=== PATIENT | female | born 1950 | race Hispanic/Latino ===

== ENCOUNTER → 2019-05-06 | Day surgery (SDC) | payer MEDICARE ==
[2019-04-30 13:04] LABS: BASOPHILS % 0.2 % (0.0-1.0); EOSINOPHILS # (AUTO) 0.2 (0.0-0.4); EOSINOPHILS % 1.5 % (0.0-6.0); HEMATOCRIT 43.6 % (34.2-44.1); HEMOGLOBIN 14.3 g/dL (12.0-16.0); LYMPHOCYTES # (AUTO) 2.4 (1.0-3.2); LYMPHOCYTES % 16.8 % (18.0-39.1); MEAN CORPUSCULAR HEMOGLOBIN 29.7 pg (28-32); MEAN CORPUSCULAR HGB CONC 32.8 g/dL (31-35); MEAN CORPUSCULAR VOLUME 90.5 fL (81-99); MONOCYTES # (AUTO) 0.9 (0.2-0.8); MONOCYTES % 6.6 % (4.4-11.3); NEUTROPHILS # (AUTO) 10.5 (2.1-6.9); NEUTROPHILS % 74.2 % (38.7-80.0); PLATELET COUNT 276 x10e3/uL (140-360); RED BLOOD COUNT 4.82 x10e6/uL (3.6-5.1); RED CELL DISTRIBUTION WIDTH 12.6 % (11.7-14.4)
[~2019-05-06] MED LIST: CRESTOR10 MG PO; FENTANYL CITRATE/PF 100MCG/2 ML INJ ONE; METFORMIN HCL500 MG PO; NAPROXEN250 MG PO; NEXIUM20 MG PO; PROPOFOL IV EMULSION 10 MG/ML 50 ML VIAL ONE
--- OUTSIDE RECORDS SUMMARY | 2019-05-06 10:01 | XMS REPORT ---
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 Allergies, Adverse Reactions, Alerts Allergy Name Allergy Type Status Severity Reaction(s) Onset Date Inactive Date Treating Clinician Comments No Known Allergies DA Active U 2018-11-02 00:00:00 No Known Contrast Allergies DA Active U 2006-11-04 00:00:00 No Known Drug Allergies DA Active U 2006-11-04 00:00:00 No Known Food Allergies DA Active U 2006-11-04 00:00:00 No Known Other Allergies DA Active U 2006-11-04 00:00:00 Medications This patient has no known medications. Encounters Start Date/Time End Date/Time Encounter Type Admission Type Attending [facility] Facility Care Department Encounter ID 2017-03-08 11:19:00 2017-03-08 23:59:00 Outpatient DAVID LUCIO [facility] [id number] Results Test Description Test Time Test Comments Text Results Atomic Results Result Comments - XR TIBIA/FIBULA 2 V RT 2019-01-05 00:14:00 FAX: Idris Worthington MD [phone] [place]: [place] St: [facility] FAX: Camila Snyder MD [phone] [facility] 1950 [facility] 68[facility]F [address] [facility] [address] Unit #: [id number] Loc: [facility] [address] Phys: Idris Regalado MD [place], [place] [address] Acct: [id number] Dis Date: Status: REG ER PHONE #: Exam Date: 01/04/2019 3683 FAX #: Reason: fall EXAMS: CPT CODE: [id number] XR TIBIA/FIBULA 2 [place] RT [id number] AFTER HOURS SERVICE ON: 01/05/2019 12:09 AM Right Ankle, 3 Views Location Code M12 History: fall Findings: There is a nondisplaced spiral fracture of the lateral malleolus. Overlying soft tissue swelling is noted. Ankle mortise, tibial plafond and talar dome are intact. Impression: Nondisplaced spiral fracture of the lateral malleolus. AFTER HOURS SERVICE ON: 01/05/2019 12:09 AM Right Tibia and Fibula, 4 Views Location Code M12 History: fall Findings: There is a spiral fracture of the lateral malleolus. No other fractures are seen in the proximal tibia and fibula. Impression: Nondisplaced spiral fracture of the lateral malleolus. PAGE 1 Signed Report (CONTINUED) FAX: Idris Worthington MD [phone] [place]: [place] St: REG FAX: Camila Snyder MD [phone] [facility] 1950 [facility]S: 68[facility]F [address] [facility] [address] Unit #: [id number] Loc: [facility] [address] Phys: Idris Regalado MD [place], [place] [address] Acct: [id number] Dis Date: Status: REG ER PHONE #: Exam Date: 01/04/2019 2351 FAX #: Reason: fall EXAMS: CPT CODE: [id number] XR TIBIA/FIBULA 2 V RT [id number] <Continued> at 0014 Reported and signed by: Gabriella Soto M.D. CC: Idris Regalado MD; Camila Valentino MD Technologist: Balaji Galvez [facility] Date/Time/By: 01/05/2019 (0014) : By: [email or web address] Orig Print D/T: S: 01/05/2019 (0017) PAGE 2 Signed Report - XR ANKLE 3 + V RT 2019-01-05 00:14:00 FAX: Idris Worthington MD [phone] [place]: [place] St: REG FAX: Camila Snyder MD [phone] Name: JORDAN WHALEN [facility]ED : 1950 Age/S: 68/F [address] [facility] [address] Unit #: [id number] Loc: [facility] [address] Phys: Idris Regalado MD [place], [place] [address] Acct: [id number] Dis Date: Status: REG ER PHONE #: Exam Date: 01/04/2019 2359 FAX #: Reason: fall EXAMS: CPT CODE: [id number] XR ANKLE 3 + V RT [id number] AFTER HOURS SERVICE ON: 01/05/2019 12:09 AM Right Ankle, 3 Views Location Code M12 History: fall Findings: There is a nondisplaced spiral fracture of the lateral malleolus. Overlying soft tissue swelling is noted. Ankle mortise, tibial plafond and talar dome are intact. Impression: Nondisplaced spiral fracture of the lateral malleolus. AFTER HOURS SERVICE ON: 01/05/2019 12:09 AM Right Tibia and Fibula, 4 Views Location Code M12 History: fall Findings: There is a spiral fracture of the lateral malleolus. No other fractures are seen in the proximal tibia and fibula. Impression: Nondisplaced spiral fracture of the lateral malleolus. PAGE 1 Signed Report (CONTINUED) FAX: Idris Worthington MD [phone] [place]: [place] St: REG FAX: Camila Snyder MD [phone] Name: JORDAN WHALEN [facility] FSED : 1950 Age/S: 68/F [address] [facility] [facility] [address] Unit #: [id number] Loc: [facility] [address] Phys: Idris Regalado MD [place], [place] [address] Acct: [id number] Dis Date: Status: REG ER PHONE #: Exam Date: 01/04/2019 2354 FAX #: Reason: fall EXAMS: CPT CODE: [id number] XR ANKLE 3 + V RT [id number] <Continued> at 0014 Reported and signed by: Gabriella Soto M.D. CC: Idris Regalado MD; Camila Valentino MD Technologist: Balaji Galvez [facility] Date/Time/By: 01/05/2019 (0014) : By: [email or web address] Orig Print D/T: S: 01/05/2019 (0017) PAGE 2 Signed Report - XR HIP W/PEL UNI 2+V RT 2018-11-02 18:17:00 FAX: Camila Snyder MD [phone] [place]: St: REG FAX: Lupillo Hutchison MD [phone] Name: JORDAN WHALEN [facility] : 1950 Age/S: 68/F [address] [facility] Unit #: [id number] Loc: [place] [address] Phys: Lupillo Hutchison MD Acct: [id number] Dis Date: Status: REG ER PHONE #: [phone] Exam Date: 11/02/2018 1815 FAX #: [phone] Reason: RLE pain EXAMS: CPT CODE: [id number] XR HIP W/PEL UNI 2+V [place] [id number] REASON FOR EXAM: RLE pain EXAM ORDER DATE: 11/02/2018 4:50 PM Ordering Leonila: Lupillo Hutchison MD PROCEDURE: - XR HIP W/PEL UNI 2+V RT FINDINGS: 3 views of the right hip with frontal view of the pelvis were obtained. The osseous structures are unremarkable in size and shape. The joint spaces are maintained. No evidence of fracture. There is normal alignment of the right hip joint IMPRESSION: Unremarkable right hip at 1817 Reported and signed by: Eulalio Hopkins M.D. CC: Camila Valentino MD; Lupillo Hutchison MD Technologist: MARIANELA HinkleR Trn[facility] Date/Time/By: 11/02/2018 (1816) : By: [email or web address] Orig Print D/T: S: 11/02/2018 (5749) PAGE 1 Signed Report BASIC METABOLIC PANEL 2018-11-02 17:37:00 SODIUM (test code=NA) 143 mmol/L 136-145 POTASSIUM (test code=K) 3.5 mmol/L 3.5-5.1 CHLORIDE (test code=CL) 110.0 mmol/L 98-107 CARBON DIOXIDE (test code=CO2) 27.0 mmol/L 21-32 ANION GAP (test code=GAP) 9.5 10-20 GLUCOSE (test code=GLU) 99 mg/dL 74-106 BLOOD UREA NITROGEN (test code=BUN) 19 mg/dL 7-18 GLOMERULAR FILTRATION RATE (test code=GFR) > 60 mL/min >=60 Estimated GFR by using Modified MDRD formula.Chronic kidney disease is defined as either kidney damageor GFR <60 mL/min/1.73 m2 for >3 months. CREATININE (test code=CREAT) 0.50 mg/dL 0.55-1.02 Note change in reference range due to change in reagent. BUN/CREATININE RATIO (test code=BUN/CREA) 38.0 10-20 CALCIUM (test code=CA) 8.0 mg/dL 8.5-10.1 PROTHROMBIN [id number] 17:20:00* Test Item Value Reference Range Comments PROTHROMBIN TIME PATIENT (test code=PTP) 11.4 seconds 9.0-14.0 INTERNATIONAL NORMAL RATIO (test code=INR) 1.0 0.8-1.2 The therapeutic range for oral anticoagulant therapy formost indications is an international normalized ratio (INR)of between 2.0 and 3.0. The recommended therapeutic INRrange for various clinical situations is listed below: Clinical Situation INR range Pulmonary e mbolism treatment (2.0-3.0)Venous thrombosis treatmentVenous thrombosis prophylaxis (high risk surgery)Prevention of systemic embolism from: Acute myocardial infarction Valvular heart disease Atrial fibrillation Mechanical prosthetic heart valves (2.5-3.5) IS PATIENT ON ANTICOAGULANTS? NTHROMBOPLASTIN TIME [id number] 17:20:00* Test Item Value Reference Range Comments THROMBOPLASTIN TIME PARTIAL (test code=PTT) 30.7 seconds 25.0-36.5 IS PATIENT ON ANTICOAGULANTS? NCBC W/AUTO [id number] 17:10:00* Test Item Value Reference Range Comments WHITE BLOOD CELL (test code=WBC) 6.8 K/mm3 4.5-12.5 RED BLOOD CELL (test code=RBC) 4.25 mill/mm3 3.7-5.2 HEMOGLOBIN (test code=HGB) 12.7 gram/dL 11.5-15.5 HEMATOCRIT (test code=HCT) 38.8 % 36.0-46.0 MEAN CELL VOLUME (test code=MCV) 91.3 fL 80-98 MEAN CELL HGB (test code=MCH) 29.9 picogram 27.0-33.0 MEAN CELL HGB CONCETRATION (test code=MCHC) 32.7 gram/dL 33.0-36.0 RED CELL DISTRIBUTION WIDTH (test code=RDW) 12.9 % 11.6-16.2 RED CELL DISTRIBUTION WIDTH SD (test code=RDW-SD) 42.5 fL 37.0-51.0 PLATELET COUNT (test code=PLT) 228 K/mm3 150-450 MEAN PLATELET VOLUME (test code=MPV) 10.0 fL 6.7-11.0 NEUTROPHIL % (test code=NT%) 55.3 % 39.0-69.0 IMMATURE GRANULOCYTE % (test code=IG%) 0.3 % 0.0-5.0 LYMPHOCYTE % (test code=LY%) 34.5 % 25.0-55.0 MONOCYTE % (test code=MO%) 6.1 % 0.0-10.0 EOSINOPHIL % (test code=EO%) 3.4 % 0.0-5.0 BASOPHIL % (test code=BA%) 0.4 % 0.0-1.0 NUCLEATED RBC % (test code=NRBC%) 0.0 % 0-0 NEUTROPHIL # (test code=NT#) 3.78 K/mm3 1.8-7.7 IMMATURE GRANULOCYTE # (test code=IG#) 0.02 x10 3/uL 0-0.03 LYMPHOCYTE # (test code=LY#) 2.36 K/mm3 1.0-5.0 MONOCYTE # (test code=MO#) 0.42 K/mm3 0-0.8 EOSINOPHIL # (test code=EO#) 0.23 K/mm3 0.0-0.5 BASOPHIL # (test code=BA#) 0.03 K/mm3 0.0-0.2 NUCLEATED RBC # (test code=NRBC#) 0.00 K/mm3 0.0-0.1 CBC W/AUTO [id number] 17:07:00* Test Item Value Reference Range Comments WHITE BLOOD CELL (test code=WBC) K/mm3 4.5-12.5 RED BLOOD CELL (test code=RBC) mill/mm3 3.7-5.2 HEMOGLOBIN (test code=HGB) 12.7 gram/dL 11.5-15.5 HEMATOCRIT (test code=HCT) 38.8 % 36.0-46.0 MEAN CELL VOLUME (test code=MCV) fL 80-98 MEAN CELL HGB (test code=MCH) picogram 27.0-33.0 MEAN CELL HGB CONCETRATION (test code=MCHC) gram/dL 33.0-36.0 RED CELL DISTRIBUTION WIDTH (test code=RDW) % 11.6-16.2 RED CELL DISTRIBUTION WIDTH SD (test code=RDW-SD) fL 37.0-51.0 PLATELET COUNT (test code=PLT) K/mm3 150-450 MEAN PLATELET VOLUME (test code=MPV) fL 6.7-11.0 NEUTROPHIL % (test code=NT%) % 39.0-69.0 IMMATURE GRANULOCYTE % (test code=IG%) % 0.0-5.0 LYMPHOCYTE % (test code=LY%) % 25.0-55.0 MONOCYTE % (test code=MO%) % 0.0-10.0 EOSINOPHIL % (test code=EO%) % 0.0-5.0 BASOPHIL % (test code=BA%) % 0.0-1.0 NEUTROPHIL # (test code=NT#) K/mm3 1.8-7.7 LYMPHOCYTE # (test code=LY#) K/mm3 1.0-5.0 MONOCYTE # (test code=MO#) K/mm3 0-0.8 EOSINOPHIL # (test code=EO#) K/mm3 0.0-0.5 BASOPHIL # (test code=BA#) K/mm3 0.0-0.2
[2019-05-06 13:30] VITALS: BP 123/70
== END | disposition home or self-care (01) ==
LOC: OR 09:58
PROVIDERS: ATTEND Internal Medicine
DX: Z12.11 Encounter for screening for malignant neoplasm of colon (principal); K21.9 Gastro-esophageal reflux disease without esophagitis; K64.0 First degree hemorrhoids; M19.90 Unspecified osteoarthritis, unspecified site; G51.0 Bell's palsy; E11.9 Type 2 diabetes mellitus without complications; R00.1 Bradycardia, unspecified; Z88.6 Allergy status to analgesic agent; Z01.812 Encounter for preprocedural laboratory examination; Z79.84 Long term (current) use of oral hypoglycemic drugs; Z86.010 Personal history of colon polyps
CPT/HCPCS: 36415 ×2; 45378; 82948; 85025; J2704; J3010